=== PATIENT | female | born 1960 | race Caucasian/White ===

== ENCOUNTER → 2018-03-25 11:14 | Outpatient (CLI) | payer MEDICAID | END | disposition home or self-care (01) | LOC: D.US 11:00 | DX: N18.2 Chronic kidney disease, stage 2 (mild) (principal) ==

== ENCOUNTER → 2018-07-10 13:26 | Outpatient (CLI) | payer MEDICAID | END | disposition home or self-care (01) | LOC: D.RAD 13:26 → D.MAMMO 14:30 | PROVIDERS: ATTEND Family Medicine | DX: Z12.31 Encounter for screening mammogram for malignant neoplasm of breast (principal) ==

== ENCOUNTER 2018-10-20 14:07 | Emergency (ER) | payer MEDICAID ==
[2018-10-20 14:35] VITALS: BMI 24.3
[2018-10-20] MEDS ORDERED: TIROSINT13 MCG PO (14:38)
[2018-10-20] MEDS ORDERED: LIPITOR20 MG PO (14:39)
[2018-10-20] MEDS ORDERED: LISINOPRIL5 MG PO (14:39)
[2018-10-20] MEDS ORDERED: VALIUM5 MG PO (14:40)
[2018-10-20] MEDS ORDERED: PROZAC10 MG PO (14:41)
[2018-10-20] MEDS ORDERED: HYDROCODON-ACE1 EAC7 PO (14:41)
[2018-10-20] MEDS ORDERED: CYCLOBENZAPRINE10 MG PO (14:42)
[2018-10-20] MEDS ORDERED: VOLTAREN75 MG PO (15:34)
[2018-10-20] MEDS ORDERED: ROBAXIN500 MG PO (15:34)
[2018-10-20 16:04] VITALS: BP 114/76
== END 2018-10-20 16:05 | disposition home or self-care (01) ==
LOC: D.ER 14:07
DX: M25.551 Pain in right hip (principal); M62.838 Other muscle spasm

== ENCOUNTER → 2018-11-23 13:14 | Outpatient (CLI) | payer MEDICAID ==
[~2018-11-23 13:14] MED LIST: CYCLOBENZAPRINE10 MG PO; HYDROCODON-ACE1 EAC7 PO; LIPITOR20 MG PO; LISINOPRIL5 MG PO; PROZAC10 MG PO; ROBAXIN500 MG PO; TIROSINT13 MCG PO; VALIUM5 MG PO; VOLTAREN75 MG PO
== END | disposition home or self-care (01) ==
LOC: D.RAD 08:00
PROVIDERS: ATTEND Family Medicine
DX: R13.12 Dysphagia, oropharyngeal phase (principal)

== ENCOUNTER → 2019-10-25 15:45 | Outpatient (CLI) | payer MEDICAID | END | disposition home or self-care (01) | LOC: D.CT 15:45 | PROVIDERS: ATTEND Nurse Practitioner Family | DX: S09.90XA Unspecified injury of head, initial encounter (principal) ==

== ENCOUNTER 2020-07-28 18:06 | Inpatient (IN) | payer MEDICAID ==
[~2020-07-28] VITALS: Ht 149.9 cm; Wt 52.2 kg
[~2020-07-28 18:06] MED LIST changes: +LIPITOR10 MG PO; -LIPITOR20 MG PO
[2020-07-28 18:34] LABS: BASOPHILS 0.6 % (0-2); EOSINOPHILS 1.7 % (0-7); HEMATOCRIT 40.4 % (36.0-48.0); HEMOGLOBIN 12.8 g/dL (12-16); IMMATURE GRANULOCYTES 0.4 % (0-5); LYMPHOCYTE ABS# 1.09 10x3/uL (1.18-3.74); LYMPHOCYTES 20.6 % (15-50); MCH 28.8 pg (26.0-34.0); MCHC 31.7 g/dL (31.0-37.0); MCV 90.8 fL (80.0-100.0); MEAN PLATELET VOLUME 8.4 fL (7.4-10.4); MONOCYTES 15.2 % (2-11); NEUTROPHIL ABS# 3.25 10x3/uL (1.56-6.13); NEUTROPHILS 61.5 % (40-80); PLATELET COUNT 318 10x3/uL (130-400); RBC 4.45 10x6/uL (4.00-5.40); RDW 14.8 % (11.5-14.5); WBC 5.3 10x3/uL (4.8-10.8)
[2020-07-28 18:45] LABS: CALC OSMOLALITY 280 mosm/kg (275-300); CALCIUM 8.1 mg/dL (8.5-10.1); CARBON DIOXIDE 24.6 mmol/L (21.0-32.0); CHLORIDE - SERUM 108 mmol/L (98-107); GLUCOSE 131 mg/dL (74-106); POTASSIUM - SERUM 3.8 mmol/L (3.5-5.1); SODIUM 139 mmol/L (136-145); UREA NITROGEN 14 mg/dL (7-18); eGFR NON AFRICAN AMERICAN 60 mL/min (90-120)
[2020-07-28 18:55] LABS: ALBUMIN 3.2 g/dL (3.4-5.0); ALKALINE PHOSPHATASE 40 U/L (30-120); ALT (SGPT) 79 U/L (10-68); AMYLASE - SERUM 53 U/L (25-115); BILIRUBIN - TOTAL 0.18 mg/dL (0.2-1.3); LIPASE 159 U/L (73-393); PROTEIN - SERUM 6.1 g/dL (6.4-8.2)
[2020-07-28 18:56] LABS: TROPONIN-I < 0.017 ng/mL (0.000-0.060)
[2020-07-28 19:34] LABS: INR 1.25 (0.85-1.17); PROTIME 14.5 SECONDS (11.6-15.0)
--- NOTE | 2020-07-28 22:13 | NUR ---
REPORT ATTEMPTED TO AL. STATED HE WOULD CALL ME BACK.
--- NOTE | 2020-07-28 22:40 | NUR ---
REPORT TO KYLEIGH MELENDEZ
--- NOTE | 2020-07-28 23:30 | NUR ---
PT ARRIVED TO FLOOR FROM ER VIA STRETCHER. PT HAVING FREQUENT WATERY STOOLS. STOOL SPECIMEN HAS BEEN SENT TO LAB. TEMPORARY ENTERIC PRECAUTIONS WHILE AWAITING RESULTS. PLACED SCD'S IN ROOM AND PROVIDED EDUCATION ABOUT SCD'S, PT NOT WEARING SCD'S DUE TO FREQUENT QUICK MOVES TO BEDSIDE COMMODE. PROVIDED INCENTIVE SPIROMETER AND INSTRUCTED ON USE. PT MADE GOOD EFFORT WITH INITIAL TIDAL VOLUME REACHING 1750. CLEAR LIQUID DIET. REVIEWED HOME MEDS AND HISTORY. COMPLETE ASSESSMENT PER FLOWSHEET.
[2020-07-28] MEDS ORDERED: CIPRO500 MG PO (23:49)
[2020-07-28] MEDS ORDERED: PEPCID AC20 MG PO (23:49)
[2020-07-28] MEDS ORDERED: FLAGYL500 MG PO (23:50)
[2020-07-28] MEDS ORDERED: LEXAPRO20 MG PO (23:51)
[2020-07-28] MEDS ORDERED: KLONOPIN1 MG PO (23:53)
[2020-07-29] VITALS: BP 122/73
[2020-07-29] MEDS ORDERED: LEVOTHYROXINE75 MCG PO (00:04)
[2020-07-29 04:00] VITALS: BP 117/63
[2020-07-29 04:36] VITALS: BMI 23.2
[2020-07-29 06:25] LABS: BASOPHILS 0.9 % (0-2); HEMATOCRIT 36.5 % (36.0-48.0); HEMOGLOBIN 11.4 g/dL (12-16); IMMATURE GRANULOCYTES 0.4 % (0-5); LYMPHOCYTE ABS# 1.35 10x3/uL (1.18-3.74); LYMPHOCYTES 24.9 % (15-50); MCH 27.9 pg (26.0-34.0); MCHC 31.2 g/dL (31.0-37.0); MCV 89.5 fL (80.0-100.0); MEAN PLATELET VOLUME 8.6 fL (7.4-10.4); NEUTROPHIL ABS# 3.13 10x3/uL (1.56-6.13); NEUTROPHILS 57.8 % (40-80); PLATELET COUNT 312 10x3/uL (130-400); RBC 4.08 10x6/uL (4.00-5.40); RDW 14.7 % (11.5-14.5); WBC 5.4 10x3/uL (4.8-10.8)
[2020-07-29 07:24] LABS: CALC OSMOLALITY 276 mosm/kg (275-300); CALCIUM 7.8 mg/dL (8.5-10.1); CARBON DIOXIDE 22.3 mmol/L (21.0-32.0); CHLORIDE - SERUM 109 mmol/L (98-107); CREATININE - SERUM 0.8 mg/dL (0.6-1.3); GLUCOSE 90 mg/dL (74-106); MAGNESIUM - SERUM 1.8 mg/dL (1.8-2.4); PHOSPHOROUS 3.1 mg/dL (2.5-4.9); POTASSIUM - SERUM 3.5 mmol/L (3.5-5.1); SODIUM 139 mmol/L (136-145); eGFR NON AFRICAN AMERICAN 77 mL/min (90-120)
[2020-07-29 07:27] LABS: UREA NITROGEN 9 mg/dL (7-18)
--- NOTE | 2020-07-29 08:08 | NUR ---
RESTING IN BED, NO DISTRESS NOTED, USING BSC, CONT TO MONITOR STOOLS
[2020-07-29 09:16] VITALS: BP 124/74
[2020-07-29 10:25] VITALS: Ht 149.9 cm; Wt 52.2 kg
[2020-07-29 14:22] VITALS: BP 113/67
[2020-07-29 18:32] VITALS: BP 116/66
[2020-07-29 21:25] VITALS: BP 108/65
--- NOTE | 2020-07-29 21:46 | NUR ---
GAVE PT QUESTRAN SCHEDULED. PT ATTEMPTED TO TAKE ONE SMALL SIP AND COUGHED, GAGGED SAID SHE WAS GOING TO VOMIT. GAVE ZOFRAN 4 MG IV PUSH. PT CAN NOT TOLERATE QUESTRAN AND REFUSES TO TAKE IT EVERY AGAIN.
[2020-07-30 00:55] VITALS: BP 119/70
[2020-07-30 02:53] LABS: BILIRUBIN NEGATIVE (NEGATIVE); KETONE NEGATIVE (NEGATIVE); NITRITE NEGATIVE (NEGATIVE); UROBILINOGEN NORMAL mg/dL (< 2)
[2020-07-30 05:41] VITALS: BP 138/83
[2020-07-30 05:53] LABS: BASOPHILS 0.5 % (0-2); EOSINOPHILS 3.3 % (0-7); HEMOGLOBIN 11.1 g/dL (12-16); IMMATURE GRANULOCYTES 0.2 % (0-5); LYMPHOCYTE ABS# 1.21 10x3/uL (1.18-3.74); LYMPHOCYTES 28.4 % (15-50); MCH 28.2 pg (26.0-34.0); MCHC 31.7 g/dL (31.0-37.0); MCV 89.1 fL (80.0-100.0); MEAN PLATELET VOLUME 8.4 fL (7.4-10.4); MONOCYTES 14.1 % (2-11); NEUTROPHIL ABS# 2.28 10x3/uL (1.56-6.13); NEUTROPHILS 53.5 % (40-80); PLATELET COUNT 306 10x3/uL (130-400); RBC 3.93 10x6/uL (4.00-5.40); RDW 14.6 % (11.5-14.5); WBC 4.3 10x3/uL (4.8-10.8)
[2020-07-30 07:05] LABS: CALC OSMOLALITY 280 mosm/kg (275-300); CALCIUM 8.1 mg/dL (8.5-10.1); CARBON DIOXIDE 20.9 mmol/L (21.0-32.0); CHLORIDE - SERUM 112 mmol/L (98-107); CREATININE - SERUM 0.8 mg/dL (0.6-1.3); GLUCOSE 85 mg/dL (74-106); MAGNESIUM - SERUM 1.6 mg/dL (1.8-2.4); PHOSPHOROUS 3.3 mg/dL (2.5-4.9); POTASSIUM - SERUM 3.6 mmol/L (3.5-5.1); SODIUM 143 mmol/L (136-145); UREA NITROGEN 4 mg/dL (7-18); eGFR NON AFRICAN AMERICAN 77 mL/min (90-120)
--- NOTE | 2020-07-30 08:15 | NUR ---
PT STATES PAIN LEVEL IS A 10/10 IN HER SHOULDER AND IN HER STOMACH A 3/10 ON THE PAIN SCALE. WILL TREAT PER EMAR. CL IN REACH. WCTM
[2020-07-30 08:26] VITALS: BP 127/75
[2020-07-30 11:55] VITALS: BP 148/61
--- NOTE | 2020-07-30 15:00 | NUR ---
PT STATES SHE WOULD LIKE HER BED CHANGED SINCE THIS HASN'T BEEN DONE SINCE SHE HAS BEEN HERE. FRESH LINENS BROUGHT TO ROOM AND TOLD PT TO LET ME KNOW WHEN SHE IS FINISHED RESTING. CL IN REACH. OLVIN
[2020-07-30 16:54] VITALS: BP 117/59; BP 122/71
[2020-07-31 06:15] VITALS: BP 128/74
[2020-07-31 06:19] LABS: BASOPHILS 0.4 % (0-2); EOSINOPHILS 2.4 % (0-7); HEMATOCRIT 35.2 % (36.0-48.0); HEMOGLOBIN 11.4 g/dL (12-16); IMMATURE GRANULOCYTES 0.2 % (0-5); LYMPHOCYTE ABS# 1.23 10x3/uL (1.18-3.74); LYMPHOCYTES 24.7 % (15-50); MCH 28.5 pg (26.0-34.0); MCHC 32.4 g/dL (31.0-37.0); MEAN PLATELET VOLUME 8.3 fL (7.4-10.4); MONOCYTES 12.9 % (2-11); NEUTROPHIL ABS# 2.96 10x3/uL (1.56-6.13); NEUTROPHILS 59.4 % (40-80); PLATELET COUNT 293 10x3/uL (130-400); RDW 14.6 % (11.5-14.5)
[2020-07-31 06:32] LABS: ANION GAP 11.5 mmol/L (8-16); CALCIUM 8.4 mg/dL (8.5-10.1); CARBON DIOXIDE 22.9 mmol/L (21.0-32.0); CREATININE - SERUM 0.9 mg/dL (0.6-1.3); MAGNESIUM - SERUM 1.8 mg/dL (1.8-2.4); PHOSPHOROUS 3.6 mg/dL (2.5-4.9); POTASSIUM - SERUM 3.4 mmol/L (3.5-5.1)
--- NOTE | 2020-07-31 07:39 | NUR ---
RESTING IN BED WITH EYES CLOSED, EASILY AROUSED TO SPEECH. IV LOCATED TO LEFT HAND CURRENTLY RUNNING NS @ 75ML/HR. NO CURRENT S/S OF DISTRESS, WILL CONT TO MONITOR.
[2020-07-31 09:03] VITALS: BP 126/78
[2020-07-31 12:53] VITALS: BP 123/96
--- NOTE | 2020-07-31 13:43 | NUR ---
PT ACCIDENTLY PULLED IV OUT, CATHETER TIP INTACT. RESTARTED 22G TO RIGHT HAND.
[2020-07-31 16:01] VITALS: BP 134/81
[2020-07-31] MEDS ORDERED: HYDROCODON-ACE1 EA10 PO (19:25)
--- NOTE | 2020-07-31 19:45 | NUR ---
PT AGITATED AT THIS TIME. STATES SHE TAKES NORCO AT HOME FOR CHRONIC SHOULDER PAIN AND THAT SHE ASKED DOCTOR FOR THEM TODAY AND STILL HAS NOT GOT AN ORDER FOR SOME. STATES SHE DOES NOT WANT TO TAKE THE MORPHINE THAT IT MAKES HER FEEL FUNNY AND HEAR THINGS. SHE IS ALSO REQUESTING SOMETHING TO HELP HER SLEEP AND FOR HER ANXIETY. STATES SHE TAKES KLONOPIN AT HOME. CALLED LAUREN BOW[facility], ORDER RECIEVED FOR NORCO AND KLONOPIN. GAVE BOTH TO PT ORDERED. PROVIDED ICE WATER. DENIES OTHER NEEDS AT THIS TIME. CL IN REACH
[2020-07-31 20:00] VITALS: BP 125/76
[2020-08-01 04:00] VITALS: BP 119/65
[2020-08-01 06:16] LABS: BASOPHILS 0.2 % (0-2); EOSINOPHILS 3.3 % (0-7); HEMATOCRIT 34.5 % (36.0-48.0); HEMOGLOBIN 11.1 g/dL (12-16); IMMATURE GRANULOCYTES 0.2 % (0-5); LYMPHOCYTES 27.2 % (15-50); MCH 28.1 pg (26.0-34.0); MCHC 32.2 g/dL (31.0-37.0); MCV 87.3 fL (80.0-100.0); MEAN PLATELET VOLUME 8.4 fL (7.4-10.4); MONOCYTES 15.6 % (2-11); NEUTROPHIL ABS# 2.75 10x3/uL (1.56-6.13); NEUTROPHILS 53.5 % (40-80); PLATELET COUNT 317 10x3/uL (130-400); RBC 3.95 10x6/uL (4.00-5.40); RDW 14.9 % (11.5-14.5); WBC 5.1 10x3/uL (4.8-10.8)
[2020-08-01 06:34] LABS: ANION GAP 14.2 mmol/L (8-16); CARBON DIOXIDE 22.2 mmol/L (21.0-32.0); CREATININE - SERUM 0.9 mg/dL (0.6-1.3); MAGNESIUM - SERUM 1.9 mg/dL (1.8-2.4); PHOSPHOROUS 3.5 mg/dL (2.5-4.9); POTASSIUM - SERUM 3.4 mmol/L (3.5-5.1)
--- NOTE | 2020-08-01 07:14 | NUR ---
PATIENT REQUESTING MIRALAX AND COFFEE EARLY TO BE ABLE TO HAVE BM AND DC HOME. GIVEN MIRALAX IN COFFEE. DENIES FURTHER NEEDS.
--- NOTE | 2020-08-01 07:23 | NUR ---
ALERT AND ORIENTED. ASSESSMENT COMPLETE. DENIES NEEDS. CALL AMATO AND PERSONAL ITEMS IN REACH. WILL CONTINUE TO MONITOR.
[2020-08-01 08:38] VITALS: BP 130/80
[2020-08-01 12:15] VITALS: BP 141/69
--- NOTE | 2020-08-01 14:20 | NUR ---
Nutrition Follow-up: Diet: Regular PO intake: 75-100% x last 4 meals recorded. She states that she had diarrhea but that "they gave her immodium on Friday" and that she has been constipated since then. She c/o abdominal pain and bloating. States that she was given Miralax this AM but that it "didn't work." States that she is going to request a suppository. States that she is going to start refusing food until she has a BM. Last BM: 08/01/20 x 2 (per nursing flowsheets) Wt: 115# (07/29/20) Meds noted: NS@30, miralax, abx Labs noted: K 3.4(L) Recommendations/Interventions: -Continue current diet. Will continue to honor food preferences. Encouraged patient to at least attempt to eat liquids until her stomach feels better. -RD will follow-up 08/04/20.
[2020-08-01 15:49] VITALS: BP 121/72
--- NOTE | 2020-08-01 18:01 | NUR ---
PATIENT C/O PATTERN CARRIER "BEING RUDE" AND "NOT TAKING TRASH OUT." WANTS TO TALK TO FORENSIC INVESTIGATOR. EVS FORENSIC INVESTIGATOR ROSA IN ROOM SPEAKING WITH PATIENT.
--- NOTE | 2020-08-01 18:04 | NUR ---
SMALL, RUNNY BM NOTED TO HAT IN TOILET AND PLACED IN COLLECTION CUP. COLLECTION CUP PLACED ON ICE AT BEDSIDE PER LAB REQUEST. LAB STATES NEEDS HALF CUP OF STOOL TO BE ABLE TO RUN TESTS AND TO KEEP STOOL ON ICE UNTIL THEN. PATIENT REQUESTING ANOTHER SUPPOSITORY D/T STILL FEELS LIKE SHE NEEDS TO HAVE BM. JOSAFAT AGUILAR PAGED.
--- NOTE | 2020-08-01 18:14 | NUR ---
SPOKE WITH JOSAFAT AGUILAR WHO STATES WILL PLACE ANOTHER SUPPOSITORY ORDER.
[2020-08-01 20:00] VITALS: BP 120/83
--- NOTE | 2020-08-01 20:00 | NUR ---
PT SITTING UP ON SIDE OF BED TALKING WITH FRIEND AT BEDSIDE. PT HAD LARGE SOFT BM. COLLECTED BM FOR STOOL STUDIES AND SENT TO LAB. PT DENIES PAIN OR NEEDS AT THIS TIME. CL IN REACH
[2020-08-02 04:00] VITALS: BP 116/67
[2020-08-02 06:37] LABS: BASOPHILS 0.2 % (0-2); EOSINOPHILS 3.3 % (0-7); HEMATOCRIT 36.2 % (36.0-48.0); HEMOGLOBIN 11.5 g/dL (12-16); IMMATURE GRANULOCYTES 0.4 % (0-5); LYMPHOCYTE ABS# 1.54 10x3/uL (1.18-3.74); LYMPHOCYTES 32.2 % (15-50); MCH 28.2 pg (26.0-34.0); MCHC 31.8 g/dL (31.0-37.0); MCV 88.7 fL (80.0-100.0); MEAN PLATELET VOLUME 8.6 fL (7.4-10.4); NEUTROPHIL ABS# 2.43 10x3/uL (1.56-6.13); NEUTROPHILS 50.9 % (40-80); PLATELET COUNT 334 10x3/uL (130-400); RBC 4.08 10x6/uL (4.00-5.40); RDW 15.4 % (11.5-14.5); WBC 4.8 10x3/uL (4.8-10.8)
[2020-08-02 06:45] LABS: ANION GAP 15.2 mmol/L (8-16); CALCIUM 8.3 mg/dL (8.5-10.1); CARBON DIOXIDE 21.9 mmol/L (21.0-32.0); CREATININE - SERUM 0.9 mg/dL (0.6-1.3); MAGNESIUM - SERUM 1.7 mg/dL (1.8-2.4); PHOSPHOROUS 3.9 mg/dL (2.5-4.9)
[2020-08-02 06:46] LABS: POTASSIUM - SERUM 4.1 mmol/L (3.5-5.1)
--- NOTE | 2020-08-02 08:24 | NUR ---
PATIENT STATED SHE HAD A LARGE BM LAST NIGHT AND IS READY TO GO HOME. NO OTHER NEEDS VOICED AT THIS TIME, EXPLAINED OT PATIENT THAT I WILL HAVE TO COLLECT ANOTHER SPECIMEN ORDERED THIS MORNING. CONTINUE WITH PLAN OF CARE
[2020-08-02 09:10] VITALS: BP 114/64
--- NOTE | 2020-08-02 09:39 | NUR ---
PATIENT IS DISCOURAGED SINCE I ECPLAINED ANOTHER SPECIMEN WAS ORDERED BECAUSE THERE WASNT ENOUGH FROM THE FIRST COLLECTED, PATIENT STATES SHE FEELS ANXIOUS AND THINKS THE WORST BECAUSE TESTS KEEPS BEING ORDERED. ENCOURAGED PATIENT TO KEEP POSITIVE. CONTINUE WITH PLAN OF CARE
--- NOTE | 2020-08-02 10:04 | NUR ---
I have reviewed this patient and I concur with the Shift Assessment completed by the Licensed Practical Nurse today this shift.
[2020-08-02] MEDS ORDERED: LEVAQUIN750 MG PO (12:14)
[2020-08-02] MEDS ORDERED: FLAGYL500 MG PO (12:16)
[2020-08-02 12:35] VITALS: BP 126/76
--- NOTE | 2020-08-02 12:52 | NUR ---
PT HAS ORDERS FOR DC HOME, WENT OVER COLLECTION OF SPECIMEN WITH PATIENT, HAT IN RESTROOM IN CASE PT HAS A BM BEFORE LEAVING. IV SL PER PT REQUEST, WOULD LIKE OUT BUT EXPLAINED TO PT NEED FOR IV INCASE OF EMERGENCY BEFORE LEAVING, PT VERBALIZED UNDERSTANDING. NO OTHER NEEDS AT THIS TIME. CONTINUE WITH PLAN OF CARE
--- NOTE | 2020-08-02 14:47 | NUR ---
APTIENT DC HOME, WENT OVER DC PAPERWORK WELL FOLLOW UP APPOINTMENTS WITH PATIENT AND INSTRUCTIONS FOR SPECIMEN COLLECTION. ALL QUESTIONS ANSWERED. COTBRANDINUE WITH PLAN OF CARE
== END 2020-08-02 14:53 | disposition home or self-care (01) | DRG 392 ==
LOC: D.ER 18:06 → D.MS 21:20 → OBSVTIME 21:20 → D.MS 23:04
PROVIDERS: Emergency Medicine; Family Medicine; ADMIT Family Medicine; ATTEND Family Medicine
DX: K52.9 Noninfective gastroenteritis and colitis, unspecified (principal); R19.7 Diarrhea, unspecified; E78.5 Hyperlipidemia, unspecified; M19.90 Unspecified osteoarthritis, unspecified site; I12.9 Hypertensive chronic kidney disease with stage 1 through stage 4 chronic kidney disease, or unspecified chronic kidney disease; N18.9 Chronic kidney disease, unspecified; G89.29 Other chronic pain; E03.9 Hypothyroidism, unspecified

== ENCOUNTER 2020-10-06 14:59 | Emergency (ER) | payer MEDICAID ==
[~2020-10-06] VITALS: Ht 149.9 cm; Wt 55.5 kg
[~2020-10-06 14:59] MED LIST changes: +CIPRO500 MG PO; +FLAGYL500 MG PO; +HYDROCODON-ACE1 EA10 PO; +KLONOPIN1 MG PO; +LEVAQUIN750 MG PO; +LEVOTHYROXINE75 MCG PO; +LEXAPRO20 MG PO; +PEPCID AC20 MG PO
[2020-10-06 15:09] VITALS: BP 130/70; Ht 149.9 cm; Wt 55.5 kg
[2020-10-06 15:39] LABS: BILIRUBIN 1+ (NEGATIVE); KETONE NEGATIVE (NEGATIVE); NITRITE NEGATIVE (NEGATIVE); UROBILINOGEN NORMAL mg/dL (< 2)
[2020-10-06 15:40] LABS: BACTERIA FEW HPF (NONE SEEN); SQUAMOUS EPITHELIAL 0-5 HPF (0-4); WHITE CELLS - URINE 0-5 HPF (0-4)
[2020-10-06 15:40] LABS: BASOPHILS 0.8 % (0-2); EOSINOPHILS 0.3 % (0-7); HEMATOCRIT 40.6 % (36.0-48.0); HEMOGLOBIN 13.3 g/dL (12-16); LYMPHOCYTES 11.7 % (15-50); MCH 28.2 pg (26.0-34.0); MCHC 32.8 g/dL (31.0-37.0); MCV 86.1 fL (80.0-100.0); MEAN PLATELET VOLUME 6.5 fL (7.4-10.4); MONOCYTES 10.4 % (2-11); NEUTROPHILS 76.8 % (40-80); RBC 4.72 10x6/uL (4.00-5.40); WBC 9.9 10x3/uL (4.8-10.8)
[2020-10-06 15:44] LABS: PLATELET COUNT 422 10x3/uL (130-400)
[2020-10-06 15:56] LABS: CALC OSMOLALITY 276 mosm/kg (275-300); CALCIUM 9.2 mg/dL (8.5-10.1); CHLORIDE - SERUM 102 mmol/L (98-107); CREATININE - SERUM 1.2 mg/dL (0.6-1.3); GLUCOSE 116 mg/dL (74-106); POTASSIUM - SERUM 3.5 mmol/L (3.5-5.1); SODIUM 137 mmol/L (136-145); UREA NITROGEN 19 mg/dL (7-18); eGFR NON AFRICAN AMERICAN 48 mL/min (90-120)
[2020-10-06 15:57] LABS: APTT 27.3 SECONDS (22.8-39.4); INR 1.15 (0.85-1.17); PROTIME 13.6 SECONDS (11.6-15.0)
[2020-10-06 16:04] LABS: ALBUMIN 3.5 g/dL (3.4-5.0); ALKALINE PHOSPHATASE 83 U/L (30-120); ALT (SGPT) 36 U/L (10-68); AMYLASE - SERUM 51 U/L (25-115); BILIRUBIN - TOTAL 0.28 mg/dL (0.2-1.3); LIPASE 119 U/L (73-393); PROTEIN - SERUM 7.1 g/dL (6.4-8.2); TROPONIN-I < 0.017 ng/mL (0.000-0.060)
[2020-10-06] MEDS ORDERED: CIPRO500 MG PO (17:45)
[2020-10-06] MEDS ORDERED: FLAGYL500 MG PO (17:45)
== END 2020-10-06 18:13 | disposition home or self-care (01) ==
LOC: D.ER 14:59
PROVIDERS: Emergency Medicine
DX: K58.9 Irritable bowel syndrome, unspecified (principal); I10 Essential (primary) hypertension; E78.5 Hyperlipidemia, unspecified

== ENCOUNTER 2020-10-08 16:20 | Emergency (ER) | payer MEDICAID ==
[~2020-10-08] VITALS: Ht 149.9 cm; Wt 54.5 kg
[2020-10-08 16:22] VITALS: Ht 149.9 cm; Wt 54.5 kg
[2020-10-08 17:37] LABS: BASOPHILS 0.6 % (0-2); EOSINOPHILS 0.5 % (0-7); HEMATOCRIT 38.1 % (36.0-48.0); HEMOGLOBIN 12.4 g/dL (12-16); LYMPHOCYTES 14.3 % (15-50); MCHC 32.7 g/dL (31.0-37.0); MCV 85.7 fL (80.0-100.0); MEAN PLATELET VOLUME 6.5 fL (7.4-10.4); MONOCYTES 14.4 % (2-11); NEUTROPHILS 70.2 % (40-80); RBC 4.45 10x6/uL (4.00-5.40); RDW 14.5 % (11.5-14.5); WBC 7.2 10x3/uL (4.8-10.8)
[2020-10-08 17:44] LABS: CALC OSMOLALITY 276 mosm/kg (275-300); CALCIUM 8.1 mg/dL (8.5-10.1); CARBON DIOXIDE 25.3 mmol/L (21.0-32.0); CHLORIDE - SERUM 104 mmol/L (98-107); CREATININE - SERUM 0.9 mg/dL (0.6-1.3); GLUCOSE 94 mg/dL (74-106); POTASSIUM - SERUM 3.2 mmol/L (3.5-5.1); SODIUM 139 mmol/L (136-145); UREA NITROGEN 9 mg/dL (7-18); eGFR NON AFRICAN AMERICAN 67 mL/min (90-120)
[2020-10-08 17:53] LABS: ALBUMIN 3.2 g/dL (3.4-5.0); ALKALINE PHOSPHATASE 71 U/L (30-120); ALT (SGPT) 28 U/L (10-68); AMYLASE - SERUM 44 U/L (25-115); BILIRUBIN - TOTAL 0.16 mg/dL (0.2-1.3); LIPASE 112 U/L (73-393); PROTEIN - SERUM 6.3 g/dL (6.4-8.2)
[2020-10-08 17:54] LABS: PLATELET COUNT 313 10x3/uL (130-400)
[2020-10-08 17:55] LABS: TROPONIN-I < 0.017 ng/mL (0.000-0.060)
[2020-10-08] MEDS ORDERED: STERAPRED DS 1010 MG PO (18:06)
[2020-10-08 20:18] VITALS: BP 106/59
== END 2020-10-08 20:19 | disposition home or self-care (01) ==
LOC: D.ER 16:20
PROVIDERS: Family Medicine
DX: K63.89 Other specified diseases of intestine (principal); R10.13 Epigastric pain; R19.7 Diarrhea, unspecified

== ENCOUNTER 2020-10-27 20:27 | Observation (INO) | payer MEDICAID ==
[~2020-10-27] VITALS: Ht 149.9 cm; Wt 54.5 kg
[~2020-10-27 20:27] MED LIST changes: +STERAPRED DS 1010 MG PO
--- NOTE | 2020-10-27 21:24 | NUR ---
LABS DRAWN AND TAKEN TO THE LAB
[2020-10-27 21:38] LABS: BASOPHILS 0.5 % (0-2); EOSINOPHILS 0.5 % (0-7); HEMATOCRIT 44.9 % (36.0-48.0); HEMOGLOBIN 14.5 g/dL (12-16); LYMPHOCYTES 14.7 % (15-50); MCH 27.9 pg (26.0-34.0); MCHC 32.3 g/dL (31.0-37.0); MCV 86.4 fL (80.0-100.0); NEUTROPHILS 74.3 % (40-80); RDW 14.8 % (11.5-14.5); WBC 10.5 10x3/uL (4.8-10.8)
[2020-10-27 21:41] LABS: PLATELET COUNT 422 10x3/uL (130-400)
[2020-10-27 21:55] LABS: CALC OSMOLALITY 275 mosm/kg (275-300); CALCIUM 9.1 mg/dL (8.5-10.1); CARBON DIOXIDE 19.8 mmol/L (21.0-32.0); CHLORIDE - SERUM 102 mmol/L (98-107); CREATININE - SERUM 1.6 mg/dL (0.6-1.3); GLUCOSE 101 mg/dL (74-106); POTASSIUM - SERUM 3.9 mmol/L (3.5-5.1); SODIUM 136 mmol/L (136-145); UREA NITROGEN 25 mg/dL (7-18); eGFR NON AFRICAN AMERICAN 35 mL/min (90-120)
[2020-10-27 22:05] LABS: ALBUMIN 3.7 g/dL (3.4-5.0); ALKALINE PHOSPHATASE 63 U/L (30-120); ALT (SGPT) 33 U/L (10-68); AMYLASE - SERUM 45 U/L (25-115); BILIRUBIN - TOTAL 0.36 mg/dL (0.2-1.3); LIPASE 95 U/L (73-393); PROTEIN - SERUM 7.5 g/dL (6.4-8.2); TROPONIN-I < 0.017 ng/mL (0.000-0.060)
[2020-10-27 23:05] LABS: CKMB 0.2 U/L (0.0-3.6); CREATINE KINASE 20 UL (21-215)
[2020-10-27 23:40] VITALS: BP 117/67
[2020-10-28 00:46] LABS: BACTERIA FEW HPF (<MOD); BILIRUBIN 1+ (NEGATIVE); GRANULAR CAST 20 LPF (0-1); KETONE 2+ mg/dL (< 1+); NITRITE NEGATIVE (NEGATIVE); PH 5.5 (5.0-8.0); SQUAMOUS EPITHELIAL 1 HPF (0-4); UROBILINOGEN 3 mg/dL (< 2); WHITE CELLS - URINE 9 HPF (0-4)
[2020-10-28 00:53] LABS: UDS - AMPHET NEGATIVE QUAL (NEGATIVE); UDS - BARB NEGATIVE QUAL (NEGATIVE); UDS - BENZO NEGATIVE QUAL (NEGATIVE); UDS - COCAINE NEGATIVE QUAL (NEGATIVE); UDS - OPIATE POSITIVE QUAL (NEGATIVE); UDS - PCP NEGATIVE QUAL (NEGATIVE); UDS - THC NEGATIVE QUAL (NEGATIVE)
[2020-10-28 01:00] VITALS: BP 107/52
--- NOTE | 2020-10-28 01:30 | NUR ---
REPORT GIVEN TO KYLEIGH BARBOZA
[2020-10-28 03:00] VITALS: BP 112/40
[2020-10-28 04:00] VITALS: BP 115/52
[2020-10-28 07:57] LABS: BASOPHILS 0.7 % (0-2); EOSINOPHILS 1.5 % (0-7); HEMATOCRIT 39.6 % (36.0-48.0); LYMPHOCYTES 22.8 % (15-50); MCH 28.1 pg (26.0-34.0); MCHC 32.7 g/dL (31.0-37.0); MCV 85.8 fL (80.0-100.0); MEAN PLATELET VOLUME 6.9 fL (7.4-10.4); MONOCYTES 13.4 % (2-11); NEUTROPHILS 61.6 % (40-80); PLATELET COUNT 384 10x3/uL (130-400); RBC 4.62 10x6/uL (4.00-5.40); RDW 14.6 % (11.5-14.5)
[2020-10-28 08:01] LABS: ALBUMIN 3.3 g/dL (3.4-5.0); ANION GAP 14.4 mmol/L (8-16); BILIRUBIN - TOTAL 0.28 mg/dL (0.2-1.3); CALCIUM 8.3 mg/dL (8.5-10.1); CARBON DIOXIDE 22.6 mmol/L (21.0-32.0); CREATININE - SERUM 1.3 mg/dL (0.6-1.3); MAGNESIUM - SERUM 1.8 mg/dL (1.8-2.4); PHOSPHOROUS 3.7 mg/dL (2.5-4.9); PROTEIN - SERUM 6.7 g/dL (6.4-8.2)
[2020-10-28 08:08] LABS: WBC 6.7 10x3/uL (4.8-10.8)
--- NOTE | 2020-10-28 12:41 | NUR ---
TO ROOM, SITUATED COMFORTABLY. ORIENTED TO ROOM AND UNIT. DENIES ANY NEEDS AT THIS TIME. BED IN LOWEST POSITION, BED RAILS X2, CALL LIGHT WITHIN REACH. WILL CONTINUE POC.
[2020-10-28 14:10] VITALS: BP 115/54; Ht 149.9 cm; Wt 54.5 kg
--- NOTE | 2020-10-28 14:16 | NUR ---
ASSESSMENT PER FLOW SHEET. PATIENT IS WITHOUT DISTRESS.CALL LIGHT IN REACH.
[2020-10-28 14:53] VITALS: BP 101/69
--- NOTE | 2020-10-28 17:21 | NUR ---
NO INSULIN PER SLIDING SCALE FOR SUGAR OF 86. ALSO STATES SHE IS NOT A DIABETIC. DENIES ANY NEEDS AT THIS TIME. BED IN LOWEST POSITION, BED RAILS X2, CALL LIGHT WITHIN REACH. WILL CONTINUE POC.
[2020-10-28 17:30] VITALS: BP 113/65
[2020-10-29 05:58] LABS: ALBUMIN 2.7 g/dL (3.4-5.0); ALKALINE PHOSPHATASE 41 U/L (30-120); CALCIUM 7.4 mg/dL (8.5-10.1); CARBON DIOXIDE 21.6 mmol/L (21.0-32.0); CHLORIDE - SERUM 107 mmol/L (98-107); GLUCOSE 89 mg/dL (74-106); MAGNESIUM - SERUM 1.7 mg/dL (1.8-2.4); PROTEIN - SERUM 5.5 g/dL (6.4-8.2); SODIUM 136 mmol/L (136-145)
[2020-10-29 06:00] LABS: ALT (SGPT) 19 U/L (10-68); CALC OSMOLALITY 271 mosm/kg (275-300); CREATININE - SERUM 0.8 mg/dL (0.6-1.3); POTASSIUM - SERUM 3.3 mmol/L (3.5-5.1); UREA NITROGEN 15 mg/dL (7-18); eGFR NON AFRICAN AMERICAN 77 mL/min (90-120)
[2020-10-29 06:03] LABS: EOSINOPHILS 3.3 % (0-7); HEMATOCRIT 31.9 % (36.0-48.0); HEMOGLOBIN 10.6 g/dL (12-16); LYMPHOCYTES 35.2 % (15-50); MCH 28.2 pg (26.0-34.0); MCHC 33.2 g/dL (31.0-37.0); MCV 85.1 fL (80.0-100.0); MEAN PLATELET VOLUME 6.8 fL (7.4-10.4); MONOCYTES 15.8 % (2-11); NEUTROPHILS 44.7 % (40-80); RBC 3.75 10x6/uL (4.00-5.40); RDW 14.6 % (11.5-14.5)
[2020-10-29 06:23] LABS: PLATELET COUNT 280 10x3/uL (130-400); WBC 4.1 10x3/uL (4.8-10.8)
--- NOTE | 2020-10-29 08:37 | NUR ---
AAOX4 UPON ENTERING. ADMINISTERED MORNING MEDICATION, NO DIFFICULITES. UPRIGHT IN BED EATING BREAKFAST. DENIES FURTHER NEEDS AT THIS TIME. BED IN LOWEST POSITION, BED RAILS X2, CALL LIGHT WITHIN REACH. WILL CONTINUE POC. ASSESSMENT PERFORMED
[2020-10-29 08:50] VITALS: BP 112/66
--- NOTE | 2020-10-29 09:59 | NUR ---
PRN GASX. DENIES OTHER NEEDS.
--- NOTE | 2020-10-29 11:39 | NUR ---
HUNG IV ABX, TOLERATING WELL. RESTING COMFORTABLY. DENIES ANY NEEDS. WILL CONTINUE POC.
[2020-10-29 12:56] VITALS: BP 112/63
[2020-10-29] MEDS ORDERED: LEVAQUIN750 MG PO (13:01)
[2020-10-29] MEDS ORDERED: FLAGYL500 MG PO (13:01)
--- NOTE | 2020-10-29 14:09 | NUR ---
SIGNED ALL NECESSARY DISCHARGE PAPERWORK. REMOVED IV FROM RIGHT FOREARM, CATHETERT TIPINTACT. COVERED WITH GAUZE AND TAPE. TOELRATED WELL. EDUCATED ON THE IMPORTANCE OF STAYING HYDRATED. DENIES FURTHER NEEDS FROM HOSPITAL/STAFF AT THIS TIME. WILL BE ESCORTED OUT VIA WHEELCHAIR. TO GO HOME WITH .
--- NOTE | 2020-10-29 17:20 | MORECARE ---
CASE MANAGEMENT DISCHARGE SUMMARY PATIENT: GAMALIEL CHRISTENSEN UNIT: [id number] ADM DATE: 10/28/20 AGE: 60 : 58 SEX: F ROOM/BED: D.2210 AUTHOR: RONALD WOLFE PHYSICIAN: REFERRING PHYSICIAN: PREMA LUA DO DATE OF SERVICE: 10/29/20 Case Management Discharge Planning Summary COMMENTS ENTERED DATE: 10/29/20 17:19 CT COMMENT TYPE: Discharge Planning REVIEWER: Con Cortés CM met with patient to complete DC plan and to evaluate needs. Patient lives independently with her spouse, Guille Christensen, . Patient stated that she does not feel that she should discharge at this time due to her persistent diarrhea. CM notified bedside nurse of patient's concerns. MD is aware. Patient stated that her home is safe and has electricity and running water. Patient stated that the home has 6 steps to enter and she is able to manage the steps without difficulty. Patient stated that she has no problems paying for medications and she fills her medications at [facility]. Patient stated that her primary care physician is Dr. Main. At discharge, the patient plans to return place and feels this is a safe discharge. CM discussed availability of home health, rehab services, and medical equipment. Patient declined HHS, SNF, IPR, and DME. Patient voiced no other needs at this time and is satisfied with DC plan. CM will continue to follow and will assist as needed with dc plans/needs DCP REVIEW SUMMARY ANTICIPATED D/C DATE: 10/29/2020 EXPECTED LOS : 1 CASE STATUS: DCP Initiated INITIAL REVIEW: 10/28/2020 INITIAL REVIEWER: Con Cortés FINAL DISCHARGE DISPOSITION: : FINAL REVIEWER: FINAL REVIEW DATE: DCP Focus Questions & Answers DCP Evaluation QUESTION: ANSWER Patient and/or caregiver agree upon recommended discharge plan? : Yes Patient's current cognitive status: : *Oriented to person, place, situation, time and present Patient's ability to cope with chronic illness : d. No chronic illness Patient gives permission to discuss discharge plans with: (name, relationship and number) : spouse, Guille Christensen, Family / Caregiver's ability to cope with chronic illness: : a. Adequate (ability to meet patient's medical needs, ensures patient attends medical appts.) Does the patient have the ability to pay for or attain post discharge needs / services? : Yes Functional screen assessment: : Basic needs can adequately be met by self Family / Caregiver's ability to cope with chronic illness: : a. Adequate (ability to meet patient's medical needs, ensures patient attends medical appts.) Physical Status: : Independent with ADL's Equipment needed for post hospitalization: : None Is there a likelihood that the patient will require additional services to return to the preadmission environment? : No Living Arrangements: : Home with Spouse/Significant Other Patient with capacity for self-care or can be cared for in same environment as prior to hospitalization? : Yes Baseline cognitive status: : *Oriented to person, place, situation, time and present Physical environment modification needed / anticipated for discharge: : No Medication Management: : Patient states can read and understand medication labels Medication Management: : Patient states can afford medications Pharmacy name(s): : [facility] Does Patient have transportation to get home and to follow-up medical appointments when discharged from the hospital? : Yes Would patient like to participate in any Care Coordination programs (if applicable): : Not applicable Does the patient have electricity at home? : Yes Does the patient have running water in their house? : Yes Equipment in use: : None Mental health screen: : No mental health history DCP Re-evaluation QUESTION: ANSWER Would patient like to participate in any Care Coordination programs (if applicable): : Not applicable PATIENT: GAMALIEL CHRISTENSEN ENCOUNTER: [id number] MEDICAL RECORD#: [id number] ADMISSION DATE: 10/28/2020 DISCHARGE DATE: 10/29/2020 ATTENDING MD: PREMA JOYCE : AGE: 60 MARITAL STATUS: M DC PLAN ID: [id number] FACILITY: [facility] PRINTED ON: 10/29/20 17:20 CT All edits/amendments must be made on the electronic document DICTATION DATE: 10/29/201719 FORMING PROCESS LINE WORKER: VINCENT 10/29/201719 RPT#: [id number] DC DATE:10/29/20 STATUS: DIS IN [facility] [address] [place] [address] END OF REPORT
--- NOTE | 2020-10-30 08:39 | MORECARE ---
CASE MANAGEMENT DISCHARGE SUMMARY PATIENT: GAMALIEL CHRISTENSEN UNIT: [id number] ADM DATE: 10/28/20 AGE: 60 : 58 SEX: F ROOM/BED: D.2210 AUTHOR: RONALD WOLFE PHYSICIAN: REFERRING PHYSICIAN: PREMA LUA DO DATE OF SERVICE: 10/30/20 Case Management Discharge Planning Summary COMMENTS ENTERED DATE: 10/29/20 17:19 CT COMMENT TYPE: Discharge Planning REVIEWER: Con Cortés CM met with patient to complete DC plan and to evaluate needs. Patient lives independently with her spouse, Guille Christensen, . Patient stated that she does not feel that she should discharge at this time due to her persistent diarrhea. CM notified bedside nurse of patient's concerns. MD is aware. Patient stated that her home is safe and has electricity and running water. Patient stated that the home has 6 steps to enter and she is able to manage the steps without difficulty. Patient stated that she has no problems paying for medications and she fills her medications at [facility]. Patient stated that her primary care physician is Dr. Main. At discharge, the patient plans to return place and feels this is a safe discharge. CM discussed availability of home health, rehab services, and medical equipment. Patient declined HHS, SNF, IPR, and DME. Patient voiced no other needs at this time and is satisfied with DC plan. CM will continue to follow and will assist as needed with dc plans/needs DCP REVIEW SUMMARY ANTICIPATED D/C DATE: 10/29/2020 EXPECTED LOS : 1 CASE STATUS: DCP Initiated INITIAL REVIEW: 10/28/2020 INITIAL REVIEWER: Con Cortés FINAL DISCHARGE DISPOSITION: : FINAL REVIEWER: FINAL REVIEW DATE: DCP Focus Questions & Answers DCP Evaluation QUESTION: ANSWER Patient gives permission to discuss discharge plans with: (name, relationship and number) : spouse, Guille Christensen, Patient's ability to cope with chronic illness : d. No chronic illness Patient's current cognitive status: : *Oriented to person, place, situation, time and present Family / Caregiver's ability to cope with chronic illness: : a. Adequate (ability to meet patient's medical needs, ensures patient attends medical appts.) Patient and/or caregiver agree upon recommended discharge plan? : Yes Physical Status: : Independent with ADL's Family / Caregiver's ability to cope with chronic illness: : a. Adequate (ability to meet patient's medical needs, ensures patient attends medical appts.) Functional screen assessment: : Basic needs can adequately be met by self Does the patient have the ability to pay for or attain post discharge needs / services? : Yes Living Arrangements: : Home with Spouse/Significant Other Is there a likelihood that the patient will require additional services to return to the preadmission environment? : No Equipment needed for post hospitalization: : None Baseline cognitive status: : *Oriented to person, place, situation, time and present Patient with capacity for self-care or can be cared for in same environment as prior to hospitalization? : Yes Physical environment modification needed / anticipated for discharge: : No Medication Management: : Patient states can afford medications Medication Management: : Patient states can read and understand medication labels Pharmacy name(s): : [facility] Does Patient have transportation to get home and to follow-up medical appointments when discharged from the hospital? : Yes Would patient like to participate in any Care Coordination programs (if applicable): : Not applicable Does the patient have electricity at home? : Yes Does the patient have running water in their house? : Yes Equipment in use: : None Mental health screen: : No mental health history DCP Re-evaluation QUESTION: ANSWER Would patient like to participate in any Care Coordination programs (if applicable): : Not applicable PATIENT: GAMALIEL CHRISTENSEN ENCOUNTER: [id number] MEDICAL RECORD#: [id number] ADMISSION DATE: 10/28/2020 DISCHARGE DATE: 10/29/2020 ATTENDING MD: PREMA JOYCE : AGE: 60 MARITAL STATUS: M DC PLAN ID: [id number] FACILITY: [facility] PRINTED ON: 10/30/20 8:39 CT All edits/amendments must be made on the electronic document DICTATION DATE: 10/30/20838 HEALTH OCCUPATIONS TEACHER: VINCENT 10/30/20838 RPT#: [id number] DC DATE:10/29/20 STATUS: DIS IN [facility] [address] [place] [address] END OF REPORT
== END 2020-10-29 14:10 | disposition home or self-care (01) ==
LOC: D.ER 20:27 → D.EDHOLD 10-28 07:19 → OBSVTIME 10-28 07:19 → D.MS 10-28 11:03
PROVIDERS: Emergency Medicine; Family Medicine; ADMIT Family Medicine; ATTEND Family Medicine
DX: K52.9 Noninfective gastroenteritis and colitis, unspecified (principal); I12.9 Hypertensive chronic kidney disease with stage 1 through stage 4 chronic kidney disease, or unspecified chronic kidney disease; N18.30 Chronic kidney disease, stage 3 unspecified; N17.9 Acute kidney failure, unspecified; E78.5 Hyperlipidemia, unspecified; E86.0 Dehydration